=== PATIENT | female | born 1940 | race Hispanic/Latino ===

== ENCOUNTER 2017-10-15 17:17 | Emergency (ER) | payer MEDICARE ==
[2017-10-15 18:03] VITALS: BMI 25.0
[2017-10-15 18:17] VITALS: BP 130/78; PULSE 97; RESP 17; TEMP 97.6; O2SAT 98
--- NOTE | 2017-10-15 18:27 | ED PDOC ---
Arrival/HPI - General Chief Complaint: Finger,Hand,&Wrist Time Seen by Provider: 10/15/17 18:24 Historian: Patient - History of Present Illness Narrative History of Present Illness (Text): 10/15/17 18:24 This 77 yo female presents to this Emergency department complaining of left hand laceration x [employer]. Patient stated she accidentally cut her hand with a broken wine glass. Patient noted she has FROM on affected hand. Last tetanus is <5 years as per patient. Denies other complains. Time/Duration: Other (see hpi) Context: Home Past Medical History - Provider Review Nursing Documentation Reviewed: Yes - Cardiac Hx Pacemaker: No - Neurological Hx Paralysis: No - Hematological/Oncological Hx Blood Transfusions: No Hx Blood Transfusion Reaction: No - Musculoskeletal/Rheumatological Hx Musculoskeletal Disorders: Yes - Psychiatric Hx Emotional Abuse: No Hx Physical Abuse: No Hx Substance Use: No - Anesthesia Hx Anesthesia Reactions: No Hx Malignant Hyperthermia: No - Suicidal Assessment Feels Threatened In Home Enviroment: No Family/Social History - Physician Review Nursing Documentation Reviewed: Yes Family/Social History: Other (noncontributory) Smoking Status: Never Smoked Hx Alcohol Use: Yes (OCCASSIONAL WINE) Hx Substance Use: No Allergies/Home Meds Allergies/Adverse Reactions: Allergies No Known Allergies Allergy (Verified 10/15/17 18:02) Home Medications: Home Meds Medication Instructions Recorded Confirmed Lisinopril 5 mg PO DAILY 07/02/14 10/15/17 Cefuroxime Axetil [Ceftin] 500 mg PO BID 07/07/14 10/15/17 Review of Systems - Review of Systems Constitutional: Normal. absent: Fatigue, Weight Change, Fevers Eyes: Normal ENT: Normal Respiratory: Normal Cardiovascular: Normal Gastrointestinal: Normal Genitourinary Female: Normal Musculoskeletal: Normal Skin: Laceration Neurological: Normal Endocrine: Normal Hemo/Lymphatic: Normal Psychiatric: Normal Physical Exam Vital Signs Temp Pulse Resp BP Pulse Ox 10/15/17 18:13 97.6 F 97 H 17 130/78 98 Temperature: Afebrile Blood Pressure: Normal Pulse: Regular Respiratory Rate: Normal Appearance: Positive for: Well-Appearing, Non-Toxic, Comfortable Pain Distress: None Mental Status: Positive for: Alert and Oriented X 3 - Systems Exam Head: Present: Atraumatic, Normocephalic Pupils: Present: PERRL Extroacular Muscles: Present: EOMI Conjunctiva: Present: Normal Mouth: Present: Moist Mucous Membranes Neck: Present: Normal Range of Motion Back: Present: Normal Inspection. No: CVA Tenderness Upper Extremity: Present: Normal ROM, NORMAL PULSES, Neurovascularly Intact, Capillary Refill < 2s, Other ((+) left hand laceration, approx. 2 cm, located over left 2nd MPJ area. No actively bleeding). No: Cyanosis, Edema Lower Extremity: Present: Normal Inspection, Normal ROM. No: Edema Neurological: Present: GCS=15, CN II-XII Intact, Speech Normal Skin: Present: Warm, Dry, Normal Color. No: Rashes Psychiatric: Present: Alert, Oriented x 3, Normal Insight, Normal Concentration Medical Decision Making ED Course and Treatment: 10/15/17 19:21 Re-evaluation. Patient feels better. Discussed results and plan with patient who expresses understanding. All questions answered and there is agreement with the plan to discharge home with instructions. Patient stable for discharge. Return if symptoms persist or worsen. Laceration repaired was performed by medical transcription. Patient stated last tetanus was < 5 years. Re-evaluation Time: 19:21 Reassessment Condition: Re-examined, Improved Disposition/Present on Arrival - Present on Arrival Any Indicators Present on Arrival: No History of DVT/PE: No History of Uncontrolled Diabetes: No Urinary Catheter: No History of Decub. Ulcer: No History Surgical Site Infection Following: None - Disposition Have Diagnosis and Disposition been Completed?: Yes Diagnosis: Hand laceration Disposition: HOME/ ROUTINE Disposition Time: 19:22 Patient Plan: Discharge Condition: GOOD Discharge Instructions (ExitCare): Care For Your Stitches (ED) Additional Instructions: Call private doctor for follow up visit in 1-2 days. Sutures needs to be removed in 6 days. Keep wound clean and dry for 2 days, then clean wound daily with soap and water. Return to emergency if wound becomes infected, redness, drainage, or worsening symptoms. Double check with your doctor regarding Tetanus vaccination. Referrals: Juanpablo Parker MD [Primary Care Provider] - Follow up with primary Forms: [employer] (Czech)
--- NOTE | 2017-10-15 18:54 | PCM.PROC ---
Procedures Attestation:: I certify that I have explained the specified Operation(s) or Procedure(s), risks, benefits and reasonable alternatives to the Patient and/or other person responsible. The opportunity was given to ask questions and all questions answered - Laceration lidocaine 1% simple, single layer linear irrigated extensively left hand 4- 0 other local infiltration simple, interrupted Site: hand Side (if applicable): left Size (cm): 1 Description: linear Depth: simple, single layer Anesthesia used: lidocaine 1% Anesthesia technique: local infiltration Amount (mLs): 1 Pre-repair: irrigated extensively Skin layer closed with: other (nylon) Size: 4-0 Technique: simple, interrupted Number of sutures: 3 Technique: simple, interrupted
== END 2017-10-15 19:13 | disposition home or self-care (01) ==
LOC: ED 17:17
DX: S61.412A Laceration without foreign body of left hand, initial encounter (principal); W25.XXXA Contact with sharp glass, initial encounter; Y92.89 Other specified places as the place of occurrence of the external cause

== ENCOUNTER 2017-10-22 09:48 | Emergency (ER) | payer MEDICARE ==
[2017-10-22 09:49] VITALS: BMI 25.0
--- NOTE | 2017-10-22 09:55 | ED PDOC ---
Arrival/HPI - General Time Seen by Provider: 10/22/17 09:52 Historian: Patient - History of Present Illness Narrative History of Present Illness (Text): 10/22/17 09:54 77 y/o female, nkda, here for the suture removal s/p sutured about 7 days ago and told to come back today for suture removal. Pt. stated that the wound healed well and dry, no numbness or tingling, no difficulty moving the lt. hand or the 5 digit, no other medical or psychological complaints. Past Medical History - Provider Review Nursing Documentation Reviewed: Yes - Cardiac Hx Pacemaker: No - Neurological Hx Paralysis: No - Hematological/Oncological Hx Blood Transfusions: No Hx Blood Transfusion Reaction: No - Musculoskeletal/Rheumatological Hx Musculoskeletal Disorders: Yes - Psychiatric Hx Emotional Abuse: No Hx Physical Abuse: No Hx Substance Use: No - Anesthesia Hx Anesthesia Reactions: No Hx Malignant Hyperthermia: No - Suicidal Assessment Feels Threatened In Home Enviroment: No Family/Social History - Physician Review Nursing Documentation Reviewed: Yes Family/Social History: Unknown Family HX Smoking Status: Never Smoked Hx Alcohol Use: Yes (OCCASSIONAL WINE) Hx Substance Use: No Allergies/Home Meds Allergies/Adverse Reactions: Allergies No Known Allergies Allergy (Verified 10/15/17 18:02) Home Medications: Home Meds Medication Instructions Recorded Confirmed Lisinopril 5 mg PO DAILY 07/02/14 10/15/17 Cefuroxime Axetil [Ceftin] 500 mg PO BID 07/07/14 10/15/17 Review of Systems - Review of Systems Constitutional: absent: Fatigue, Fevers Eyes: absent: Vision Changes ENT: absent: Hearing Changes Respiratory: absent: SOB, Cough Cardiovascular: absent: Chest Pain Gastrointestinal: absent: Abdominal Pain, Diarrhea ( ), Nausea, Vomiting Musculoskeletal: absent: Arthralgias, Back Pain Skin: absent: Rash, Pruritis Neurological: absent: Headache, Dizziness Hemo/Lymphatic: absent: Adenopathy, Easy Bleeding Psychiatric: absent: Anxiety, Depression, Suicidal Ideation Physical Exam Vital Signs Reviewed: Yes Vital Signs Temp Pulse Resp BP Pulse Ox 10/22/17 10:51 98.2 F 69 18 129/67 98 Temperature: Afebrile Blood Pressure: Normal Pulse: Regular Respiratory Rate: Normal Appearance: Positive for: Well-Appearing, Non-Toxic, Comfortable Pain Distress: None Mental Status: Positive for: Alert and Oriented X 3 - Systems Exam Head: Present: Atraumatic, Normocephalic Pupils: Present: PERRL Extroacular Muscles: Present: EOMI Conjunctiva: Present: Normal Neck: Present: Normal Range of Motion Respiratory/Chest: Present: Clear to Auscultation, Good Air Exchange. No: Respiratory Distress, Accessory Muscle Use Cardiovascular: Present: Regular Rate and Rhythm, Normal S1, S2. No: Murmurs Abdomen: Present: Normal Bowel Sounds. No: Tenderness, Distention, Peritoneal Signs Back: Present: Normal Inspection Upper Extremity: Present: Normal Inspection, Other (Lt. hand dorsum 2nd MCPJ region noted with 3 sutures noted with the wound healed, no cellulitis or streaking, no ulcers, FROM without limitation, sensation intact, motor 5/5, + radial pulse, capillary refill< 2 seconds, neurovascular intact. ). No: Cyanosis, Edema Lower Extremity: Present: Normal Inspection. No: Edema Neurological: Present: GCS=15, CN II-XII Intact, Speech Normal Skin: Present: Warm, Dry, Normal Color. No: Rashes Psychiatric: Present: Alert, Oriented x 3, Normal Insight, Normal Concentration Medical Decision Making ED Course and Treatment: 10/22/17 11:02 -3 sutures removed with success, no remaining sutures. -Discharge home with education on follow up with your own pmd within 2 days, return to the ER for any new or worsening signs or symptoms. - PA / NEGOTIATOR / Resident Statement MD/DO has reviewed & agrees with the documentation as recorded. Disposition/Present on Arrival - Present on Arrival Any Indicators Present on Arrival: No History of DVT/PE: No History of Uncontrolled Diabetes: No Urinary Catheter: No History of Decub. Ulcer: No History Surgical Site Infection Following: None - Disposition Have Diagnosis and Disposition been Completed?: Yes Diagnosis: Visit for suture removal Disposition: HOME/ ROUTINE Disposition Time: 11:03 Patient Plan: Discharge Condition: GOOD Additional Instructions: -Discharge home with education on follow up with your own pmd within 2 days, return to the ER for any new or worsening signs or symptoms.
[2017-10-22 10:54] VITALS: BP 129/67; PULSE 69; RESP 18; TEMP 98.2; O2SAT 98
== END 2017-10-22 11:05 | disposition home or self-care (01) ==
LOC: ED 09:48
DX: Z48.02 Encounter for removal of sutures (principal)

== ENCOUNTER 2017-11-29 09:14 | Emergency (ER) | payer MEDICARE ==
--- NOTE | 2017-11-29 10:07 | ED PDOC ---
Arrival/HPI - General Chief Complaint: Finger,Hand,&Wrist Time Seen by Provider: 11/29/17 09:54 Historian: Patient - History of Present Illness Associated Symptoms (Text): 11/29/17 10:02 77-year-old female complaining of redness, pain, swelling to the dorsal aspect of the left second MCP which she noticed today. Patient states that she had sustained a laceration with a foreign body inside that wound which was removed and the laceration was repaired in this emergency room approximately one month ago. Patient states that she did follow up in this emergency room, had the sutures removed and she had good results in terms of wound healing. Otherwise: (-) other injury, (-) fever, (-) decrease in ROM, (-) numbness. Past Medical History - Infectious Disease Hx of Infectious Diseases: None - Cardiac Hx Pacemaker: No - Neurological Hx Paralysis: No - Hematological/Oncological Hx Blood Transfusions: No Hx Blood Transfusion Reaction: No - Musculoskeletal/Rheumatological Hx Musculoskeletal Disorders: Yes - Psychiatric Hx Emotional Abuse: No Hx Physical Abuse: No Hx Substance Use: No - Anesthesia Hx Anesthesia Reactions: No Hx Malignant Hyperthermia: No - Suicidal Assessment Feels Threatened In Home Enviroment: No Family/Social History Family/Social History: No Known Family HX Smoking Status: Never Smoked Hx Alcohol Use: Yes (OCCASSIONAL WINE) Hx Substance Use: No Allergies/Home Meds Allergies/Adverse Reactions: Allergies No Known Allergies Allergy (Verified 11/29/17 09:21) Home Medications: Home Meds Medication Instructions Recorded Confirmed Lisinopril 5 mg PO DAILY 07/02/14 11/29/17 Cefuroxime Axetil [Ceftin] 500 mg PO BID 07/07/14 11/29/17 Review of Systems - Review of Systems Constitutional: absent: Fatigue, Weight Change, Fevers Musculoskeletal: Arthralgias. absent: Back Pain, Neck Pain Skin: absent: Rash, Pruritis, Skin Lesions Physical Exam - Physical Exam Narrative Physical Exam (Text): 11/29/17 10:05 GENERAL APPEARANCE: Patient is awake, alert, oriented x 3, in no acute distress. SKIN: Warm, (-) rash, (-) lesions. UPPER EXTREMITY: (+) Tenderness, (+) swelling, (+) mild erythema to the dorsal aspect of the L 2nd MCP, (-) ecchymosis; (-) crepitus, (-) deformity. Tendon function intact. (-) distal neurovascular deficit. 2 point discrimination. Remainder of hand, digits and wrist: (-) injury. Vital Signs Temp Pulse Resp BP Pulse Ox 11/29/17 09:22 97.6 F 71 19 148/73 97 Medical Decision Making ED Course and Treatment: 11/29/17 10:07 77 yo F presents with erythema, edema and pain to the L 2nd digit. DDx: retained FB vs cellulitis Plan : - XR L hand : no FB, no acute abnormality, as read by PA. XR results d/w the patient. Advised that she will need to f/u w/ hand specialist for further evaluation. Advised to take antibiotic to prevent infection. Return to the ER at any time for any new or worsening symptoms. - RAD Interpretation Radiology Orders: 11/29/17 09:55 HAND LEFT 2ND DIGIT (FINGER) [RAD] Stat - PA / PSYCHOLOGICAL EXAMINER / Resident Statement MD/DO has reviewed & agrees with the documentation as recorded. Disposition/Present on Arrival - Present on Arrival Any Indicators Present on Arrival: No History of DVT/PE: No History of Uncontrolled Diabetes: No Urinary Catheter: No History of Decub. Ulcer: No History Surgical Site Infection Following: None - Disposition Have Diagnosis and Disposition been Completed?: Yes Diagnosis: Hand pain, left Disposition: HOME/ ROUTINE Disposition Time: 11:00 Condition: STABLE Discharge Instructions (ExitCare): Hand Pain (DC), Foreign Body in Skin Additional Instructions: Thank you for letting us take care of you today. You were treated for hand pain , possible retained FB. The emergency medical care you received today was directed at your acute symptoms. If you were prescribed any medication, please fill it and take as directed. It may take several days for your symptoms to resolve. Return to the Emergency Department if your symptoms worsen, do not improve, or if you have any other problems. Please contact your doctor in 2 days for re-evaluation and follow up / or call one of the physicians/clinics you have been referred to that are listed on the Patient Visit Information form that is included in your discharge packet. Bring any paperwork you were given at discharge with you along with any medications you are taking to your follow up visit. Our treatment cannot replace ongoing medical care by a primary care provider (PCP) outside of the emergency department. Thank you for allowing the [facility] team to be part of your care today. Prescriptions: Cephalexin [Keflex] 500 mg PO Q6 #28 capsule Referrals: Juanpablo Parker MD [Primary Care Provider] - Follow up with primary Lou Thrasher MD [Staff Provider] - Follow up with primary Forms: [employer] (Irish)
--- NOTE | 2017-11-29 10:29 | RAD ---
PROCEDURE: Left Hand Radiographs. HISTORY: pain COMPARISON: None. FINDINGS: BONES: Normal. No fracture. JOINTS: Normal. No osteoarthritic changes. SOFT TISSUES: Normal. OTHER FINDINGS: None. IMPRESSION: Normal left hand radiographs.
[2017-11-29 12:38] VITALS: BP 139/74; PULSE 84; RESP 20; TEMP 97.6; O2SAT 97; BMI 25.2
== END 2017-11-29 11:09 | disposition home or self-care (01) ==
LOC: ED 09:14
DX: M79.642 Pain in left hand (principal)

== ENCOUNTER 2018-12-16 11:04 | Outpatient (CLI) | payer MEDICARE | END 2018-12-16 11:05 | disposition home or self-care (01) | LOC: RAD 11:04 ==

== ENCOUNTER 2018-12-31 07:29 | Outpatient (CLI) | payer MEDICARE | END 2018-12-31 07:30 | disposition home or self-care (01) | LOC: RAD 07:29 | DX: M54.2 Cervicalgia (principal) ==